=== PATIENT | female | born 1990 | race Caucasian/White ===

== ENCOUNTER 2023-10-22 17:42 | Outpatient (CLI) | payer BC, SELFPAY | END 2023-10-22 17:43 | disposition home or self-care (01) | LOC: NFLDREF 10-23 08:38 | PROVIDERS: PCP Family Medicine; Referring Provider Family Medicine; Visit Provider Nurse Practitioner Family | DX: R30.0 Dysuria (principal); N30.00 Acute cystitis without hematuria | CPT/HCPCS: 87086; 87186 ==